=== PATIENT | male | born 1975 | race Two or more races ===

== ENCOUNTER 2025-01-11 07:35 | Emergency (ER) | payer MEDICARE, OTHER ==
[~2025-01-11] VITALS: Ht 167.6 cm; Wt 91.1 kg
--- NOTE | 2025-01-11 07:55 | ED.PDOC ---
General HPI Comments This is a 49 year old male presenting to the ED with chief complaint of flank pain. Patient reports that he started to experiencing right sided flank pain with associated nausea since 0430 this morning. Patient relays that his pain at this time feels like a previous kidney stone he had. Patient denies any fever, dysuria, hematuria, abdominal pain, vomiting, or diarrhea. Chief Complaint: Flank Pain Time Seen by MD: 07:53 Reviewed notes: Nurses Notes, Medications, Allergies Allergies: Coded Allergies: Clindamycin (Verified Allergy, Unknown, 01/11/25) Vancomycin (Verified Allergy, Unknown, 01/11/25) Information Source: Patient Mode of Arrival: Ambulatory Severity: Moderate Timing: Hours Duration: Since onset Prehospital treatment: None Onset: Spontaneous History of: Kidney stone Location: (R) Flank Penile discharge: None Modifying factors: None associated signs and symptoms: Nausea, Flank Pain Past Medical History PAST MEDICAL HISTORY: Kidney Stones Surgical History: Hernia Repair Surgical History (Other): Lt leg surgery Family History Family History: Reviewed,noncontributory to illness Social History Smoker: Non-Smoker Alcohol: Denies ETOH Use Drugs: Denies Drug Use Lives In: Home Constitutional: denies: chills, diaphoresis, fatigue, fever, malaise, sweats, weakness, others EENTM: denies: blurred vision, double vision, ear bleeding, ear discharge, ear drainage, ear pain, ear ringing, eye pain, eye redness, hearing loss, mouth pain, mouth swelling, nasal discharge, nose bleeding, nose congestion, nose pain, photophobia, tearing, throat pain, throat swelling, voice changes, others Respiratory: denies: cough, hemoptysis, orthopnea, SOB at rest, shortness of breath, SOB with excertion, stridor, wheezing, others Cardiovascular: denies: chest pain, dizzy spells, diaphoresis, Dyspnea on exertion, edema, irregular heart beat, left arm pain, lightheadedness, palpitations, PND, syncope, others Gastrointestinal: reports: nausea; denies: abdomen distended, abdominal pain, blood streaked bowels, constipated, diarrhea, dysphagia, difficulty swallowing, hematemesis, melena, poor appetite, poor fluid intake, rectal bleeding, rectal pain, vomiting, others Genitourinary: reports: flank pain; denies: burning, dysuria, frequency, hematuria, incontinence, penile discharge, penile sore, pain, testicle pain, testicle swelling, urgency, others Neurological: denies: dizziness, fainting, headache, left sided numbness, left sided weakness, numbness, paresthesia, pre-existing deficit, right sided num bness, right sided weakness, seizure, speech problems, tingling, tremors, weakness, others Musculoskeletal: denies: back pain, gout, joint pain, joint swelling, muscle pain, muscle stiffness, neck pain, others Integumetry: denies: bruises, change in color, change in hair/nails, dryness, laceration, lesions, lumps, rash, wounds, others Allergic/Immunocompromised: denies: Difficulty Healing, Frequent Infections, Hives, Itching, others Hematologic/Lymphatic: denies: anemia, blood clots, easy bleeding, easy bruising, swollen glands, others Endocrine: denies: excessive hunger, excessive sweating, excessive thirst, excessive urination, flushing, intolerance to cold, intolerance to heat, unexplained weight gain, unexplained weight loss, others Psychiatric: denies: anxiety, bipolar disorder, depression, hopeless, panic disorder, schizophrenia, sleepless, suicidal, others All Other Systems: Reviewed and Negative Physical Exam General Appearance: Moderate Distress, Normal HEENT: Normal ENT Inspection, Pharynx Normal, TMs Normal Neck: Full Range of Motion, Non-Tender, Normal, Normal Inspection Respiratory: Chest Non-Tender, Lungs Clear, No Accessory Muscle Use, No Respiratory Distress, Normal Breath Sounds Cardiovascular: No Edema, No JVD, No Murmur, No Gallop, Normal Peripheral Pulses, Regular Rate/Rhythm Breast Exam: Deferred Gastrointestinal: No Organomegaly, Non Tender, No Pulsatile Mass, Normal Bowel Sounds, Soft Genitalia: Deferred Pelvic: Deferred Rectal: Deferred Extremities: No calf tenderness, Normal capillary refill, Normal inspection, Normal range of motion, Non-tender, No pedal edema Musculoskeletal : Apperance: Normal Neurologic: Alert, 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 Was a procedure done?: No Differential Diagnosis Kidney stone (Female): N/A Kidney stone (Male): Pyelonephritis, Urolithiasis, Urinary tract infection X-Ray, Labs, Meds, VS Vital Signs Date Time Temp Pulse Resp B/P (MAP) Pulse Ox O2 Delivery O2 Flow Rate FiO2 01/11/25 09:53 73 18 97 Room Air* 0 21 01/11/25 08:15 73 18 97 Room Air 01/11/25 08:15 97.7 73 18 142/75 (97) 97 97.7 01/11/25 07:37 98.1 65 18 162/65 99 98.1 Lab Test 01/11/25 08:37 01/11/25 08:00 Range/Units Urine Color Light-yellow Yellow Urine Clarity Clear Clear Urine pH 5.5 5.0-9.0 Urine Specific [place] 1.021 1.001-1.035 Urine Protein Negative Negative Urine Ketones Negative Negative Urine Blood Negative Negative /uL Urine Nitrite Negative Negative Urine Bilirubin Negative Negative Urine Urobilinogen Normal Negative mg/dL Urine Leukocyte Esterase Negative Negative /uL Urine RBC 2 0 - 3 /hpf Urine Microscopic WBC < 1 0-3 /HPF Urine Squamous Epithelial Cells None seen <5 /hpf Urine Bacteria None seen None Seen /hpf Urine Glucose Trace Normal mg/dL White Blood Count 9.6 4.4-10.8 10^3/uL Red Blood Count 5.03 4.5-5.90 10^6/uL Hemoglobin 15.6 13.5-17.5 g/dL Hematocrit 44.3 41.0-53.0 % Mean Corpuscular Volume 88.1 80.0-100.0 fL Mean Corpuscular Hemoglobin 31.0 28.0-32.0 pg Mean Corpuscular Hemoglobin Concent 35.2 32.0-36.0 g/dL Red Cell Distribution Width 12.8 11.8-14.3 % Platelet Count 344 140-450 10^3/uL Mean Platelet Volume 7.7 6.9-10.8 fL Neutrophils (%) (Auto) 65.4 37.0-80.0 % Lymphocytes (%) (Auto) 28.0 10.0-50.0 % Monocytes (%) (Auto) 5.8 0.0-12.0 % Eosinophils (%) (Auto) 0.5 0.0-7.0 % Basophils (%) (Auto) 0.3 0.0-2.0 % Neutrophils # (Auto) 6.2 1.6-8.6 10 ^3/uL Lymphocytes # (Auto) 2.7 0.4-5.4 10 ^3/uL Monocytes # (Auto) 0.6 0-1.3 10 ^3/uL Eosinophils # (Auto) 0 0-0.8 10 ^3/uL Basophils # (Auto) 0 0-0.2 10 ^3/uL Nucleated Red Blood Cells 0.0 % Sodium Level 139 136-145 mmol/L Potassium Level 4.0 3.5-5.1 mmol/L Chloride Level 104 98-107 mmol/L Carbon Dioxide Level 26 20-31 mmol/L Anion Gap 9 5-15 Blood Urea Nitrogen 17 9-23 mg/dL Creatinine 1.17 0.700-1.30 mg/dL Glomerular Filtration Rate Calc 76 >90 mL/min BUN/Creatinine Ratio 14.5 10.0-20.0 Serum Glucose 167 H 74-106 mg/dL Calcium Level 9.8 8.7-10.4 mg/dL Current Medications Medications (Trade) Dose Ordered Sig/Pooja Route Start Time Stop Time Status Last Admin Ondansetron HCl (Zofran) 4 mg ONCE ONCE IV 01/11/25 08:00 01/11/25 08:01 DC 01/11/25 08:54 Ketorolac Tromethamine (Toradol Injection) 30 mg ONCE ONCE IV 01/11/25 08:00 01/11/25 08:01 DC 01/11/25 08:56 Sodium Chloride 1,000 ml @ 1,000 mls/hr Q1H ONCE IV 01/11/25 08:00 01/11/25 08:59 DC 01/11/25 08:54 Ceftriaxone Sodium 50 ml @ 100 mls/hr ONCE ONCE IV 01/11/25 10:15 01/11/25 10:44 DC 01/11/25 10:28 Metronidazole 100 ml @ 100 mls/hr ONCE ONCE IV 01/11/25 10:15 01/11/25 11:14 DC 01/11/25 10:57 Patient alert. Came in for flank pain. History of kidney stone. Vitals stable. History of left knee injury. WBC within normal limits. Hemoglobin within normal limits. Establish intravenous access. Was given fluids. Was given pain medication. Was given Zofran. Explained to the patient. Continue monitoring. CT scan of the abdomen reviewed kidney stone diverticulitis. Was given Rocephin. Was given Flagyl. [place] approved ER visit [id number]. Patient insists on going home. Pain-free. Abdomen is soft. No distress. He was going to drive down to [place]. Was given prescription of amoxicillin Flagyl antibiotic. Satisfied with the treatment plan. Was told to come back if there is any problem. CT Abd/Pel: [place] [id number] Ph: [phone] DIAGNOSTIC IMAGING Diagnostic Imaging Report : [id number] Signed PATIENT: EMILIANA HOPKINS ACCT: [id number] UNIT: [id number] : 1975 LOC: ER ROOM / BED: / AGE / SEX: 49 / M ADM STATUS: REG ER SERVICE [id number] ORDERING PHYSICIAN: DEANNE GRANT MD PROCEDURE(s): ABPL - CT AB PEL WO CON-NO ORAL OR IV REASON: stone ORDER NUMBER(s): [id number], ACCESSION NUMBER(s): [id number] CT CT AB PEL WO CON-NO ORAL OR IV INDICATION: stone EXAM DATE: 01/11/2025 08:33 AM COMPARISON: None RADIATION DOSE: CTDIvol: 14 mGy, DLP: 718 mGy*cm PROCEDURE: Helical CT images were obtained of the abdomen and pelvis without IV contrast Sagittal and coronal reconstructions are provided. ORAL CONTRAST: None. ADDITIONAL IMAGES / REFORMATS: None All CT scans at this medical facility are p erformed using dose modulation techniques as appropriate to a performed exam including the following: Automated exposure control was utilized; adjustment of the MA and/or KV according to patient size; and use of iterative reconstruction technique. FINDINGS: LUNG BASE: Normal. LIVER: Hepatic steatosis. GALLBLADDER AND BILIARY TREE: No calcified gallstones. Normal caliber wall. No intra- or extrahepatic biliary ductal dilation. PANCREAS: Normal. SPLEEN: Normal. BOWEL: Moderate colonic diverticulosis with mild descending colonic diverticulitis. Normal appendix. ADRENALS: Normal. KIDNEYS AND URETER: 3 mm proximal right ureteral kidney stone with mild right hydronephrosis. Additional nonobstructive kidney stones are seen. BLADDER: Normal. REPRODUCTIVE ORGANS: Normal. LYMPH NODES:No lymphadenopathy. PERITONEUM: No ascites or free air. No other fluid collection. VESSELS: Scattered atherosclerotic calcifications are noted. RETROPERITONEUM: Normal. ABDOMINAL WALL: Normal. BONES: Scattered osseous degenerative changes are noted. IMPRESSION: 3 mm proximal right ureteral kidney stone with mild right hydronephrosis. Additional nonobstructive kidney stones are seen. Moderate colonic diverticulosis with mild descending colonic diverticulitis. Hepatic steatosis. ATED BY: SKYLER AGUILERA MD DICTATED DATE/TIME: 01/11/25904 SIGNED BY: SKYLER AGUILERA MD SIGNED DATE/TIME: 01/11/25904 CC: Images Reviewed?: Images reviewed and evaluated by me Time of 1ST Reevaluation: 08:52 Reevaluation 1ST: Unchanged Time of 2ND Reevaluation: 11:30 Reevaluation 2ND: Improved Patient Education/Counseling: Diagnosis, Treatment Family Education/Counseling: No Family Present SEPSIS Sepsis Screen Date sepsis recognized/suspect: Jan 11, 2025 Time Sepsis recognized/suspect: 0739 Recent Procedure: No On Antibiotic Therapy: No Respiratory Rate >20: No Heart Rate >90: No Temp<36 C (96.8 F) or >38.3 C: No SBP <90 or MAP <65 mmHG: No New Acute Mental Status Change: No Is the patient on CPAP, BIPAP,: No Physician Orders Saline Lock (01/11/25 08:21) Ct Ab Pel Wo Con-No Oral Or Iv (01/11/25 08:33) Imaging Transfer Request (01/11/25 10:12) Vital Signs Date Time Temp Pulse Resp B/P (MAP) Pulse Ox O2 Delivery O2 Flow Rate FiO2 01/11/25 09:53 73 18 97 Room Air* 0 21 01/11/25 08:15 73 18 97 Room Air 01/11/25 08:15 97.7 73 18 142/75 (97) 97 97.7 01/11/25 07:37 98.1 65 18 162/65 99 98.1 Laboratory Tests Test 01/11/25 08:00 White Blood Count 9.6 10^3/uL (4.4-10.8) Medications Medications Dose Ordered Sig/Pooja Route Start Time Stop Time Status Last Admin Dose Admin Ceftriaxone Sodium 50 ml @ 100 mls/hr ONCE ONCE IV 01/11/25 10:15 01/11/25 10:44 DC 01/11/25 10:28 Ketorolac Tromethamine 30 mg ONCE ONCE IV 01/11/25 08:00 01/11/25 08:01 DC 01/11/25 08:56 Metronidazole 100 ml @ 100 mls/hr ONCE ONCE IV 01/11/25 10:15 01/11/25 11:14 DC 01/11/25 10:57 Ondansetron HCl 4 mg ONCE ONCE IV 01/11/25 08:00 01/11/25 08:01 DC 01/11/25 08:54 Sodium Chloride 1,000 ml @ 1,000 mls/hr Q1H ONCE IV 01/11/25 08:00 01/11/25 08:59 DC 01/11/25 08:54 Departure 1 Departure Time of Disposition: 08:33 Impression: Primary Impression: Kidney stone Additional Impression: Diverticulitis Disposition: 01 HOME / SELF CARE / HOMELESS Condition: Good e-Prescriptions Metronidazole (Flagyl) 500 Mg Tab 1 TAB PO TID for 7 Days, #21 TAB Prov: DEANNE GRANT MD 01/11/25 Amoxicillin Trihydrate (Amoxicillin) 500 Mg Tab 1 TAB PO TID for 7 Days, #21 TAB Prov: DEANNE GRANT MD 01/11/25 Discharged With: Self Critical Care Note Critical Care Time?: No Stability Stability form required: No Heart Score Heart Score: Heart Score Response (Comments) Value History N/A 0 EKG N/A 0 Age N/A 0 Risk Factors N/A 0 Troponin N/A 0 Total 0 I personally scribed for DEANNE GRANT MD ([email or web address]) on 01/11/25 at 07:55. Electronically submitted by Harris Hardy ([email or web address]). I personally scribed for DEANNE GRANT MD ([email or web address]) on 01/11/25 at 09:18. Electronically submitted by Harris Hardy ([email or web address]). DEANNE GRANT MD Jan 11, 2025 07:55
[2025-01-11 08:21] LABS: Hematocrit 44.3 % (41.0-53.0); Hemoglobin 15.6 g/dL (13.5-17.5); Mean Corpuscular Hemoglobin 31.0 pg (28.0-32.0); Mean Corpuscular Volume 88.1 fL (80.0-100.0); Nucleated Red Blood Cells % 0.0 %
[2025-01-11 08:26] LABS: Chloride 104 mmol/L (98-107); Potassium 4.0 mmol/L (3.5-5.1); Sodium 139 mmol/L (136-145)
[2025-01-11 08:27] LABS: Anion Gap 9 (5-15); Calcium 9.8 mg/dL (8.7-10.4); Carbon Dioxide 26 mmol/L (20-31)
[2025-01-11 08:32] LABS: BUN/Creatinine Ratio 14.5 (10.0-20.0); Blood Urea Nitrogen 17 mg/dL (9-23)
[2025-01-11 08:33] LABS: Glucose 167 mg/dL (74-106)
[2025-01-11 08:44] LABS: Urine Protein, UAD Negative (Negative)
[2025-01-11] MEDS: SODIUM CHLORIDE 0.9% 1,000 ML IV ONE (08:54)
[2025-01-11] MEDS: ONDANSETRON HCL 4 MG/2 ML VIAL IV ONE (08:54)
[2025-01-11] MEDS: KETOROLAC TROMETH 30 MG/ML 1ML VIAL IV ONE (08:56)
--- NOTE | 2025-01-11 09:07 | DVH ---
CT CT AB PEL WO CON-NO ORAL OR IV INDICATION: stone EXAM DATE: 01/11/2025 08:33 AM COMPARISON: None RADIATION DOSE: CTDIvol: 14 mGy, DLP: 718 mGy*cm PROCEDURE: Helical CT images were obtained of the abdomen and pelvis without IV contrast Sagittal and coronal reconstructions are provided. ORAL CONTRAST: None. ADDITIONAL IMAGES / REFORMATS: None All C T scans at this medical facility are performed using dose modulation techniques as appropriate to a p erformed exam including the following: Automated exposure control was utilized; adjustment of the MA and/or KV according to patient size; and use of iterative reconstruction technique. FINDINGS: LUNG BASE: Normal. LIVER: Hepatic steatosis. GALLBLADDER AND BILIARY TREE: No calcified gallstones. Normal caliber wall. No intra- or extrahepatic biliary ductal dilation. PANCREAS: Normal. SPLEEN: Normal. BOWEL: Moderate colonic diverticulosis with mild descending colonic diverticulitis. Normal appendix. ADRENALS: Normal. KIDNEYS AND URETER: 3 mm proximal right ureteral kidney stone with mild right hydronephrosis. Additio nal nonobstructive kidney stones are seen. BLADDER: Normal. REPRODUCTIVE ORGANS: Normal. LYMPH NODES:No lymphadenopathy. PERITONEUM: No ascites or free air. No other fluid collection. VESSELS: Scattered atherosclerotic calcifications are noted. RETROPERITONEUM: Normal. ABDOMINAL WALL: Normal. BONES: Scattered osseous degenerative changes are noted. IMPRESSION: 3 mm proximal right ureteral kidney stone with mild right hydronephrosis. Additional nonobstructive k idney stones are seen. Moderate colonic diverticulosis with mild descending colonic diverticulitis. Hepatic steatosis.
[2025-01-11 09:53] VITALS: PULSE 73; RESP 18; O2SAT 97
[2025-01-11] MEDS: cefTRIAXone 1GM/50ML D5W 50 ML IV ONE (10:28)
[2025-01-11] MEDS ORDERED: AMOX500T3 PO (11:30)
[2025-01-11] MEDS ORDERED: METR-344 PO (11:30)
[2025-01-11 11:40] VITALS: BP 143/79; PULSE 80; RESP 16; TEMP 97.9; O2SAT 98
== END 2025-01-11 11:47 | disposition home or self-care (01) ==
LOC: ER 07:35
DX: N20.0 Calculus of kidney (principal); K57.32 Diverticulitis of large intestine without perforation or abscess without bleeding; Z87.442 Personal history of urinary calculi; Z98.890 Other specified postprocedural states; Z88.1 Allergy status to other antibiotic agents
CPT/HCPCS: 36415; 74176; 80048; 81001; 85025; 96361; 96365; 96367; 96375; 99285; J0696; J1885; J2405; J3490; J7030